=== PATIENT | male | born 1940 | race Caucasian/White ===

== ENCOUNTER → 2017-06-10 | Outpatient (CLI) | payer MEDICARE, BC ==
--- NOTE | ~2017-06-10 | PUL ---
PATIENT'S NAME: Rainer DUNLAP [facility] AGE: 76 Y [address] ROOM: [place] [address] LOCATION: [facility] ADMIT DATE: 06/10/2017 Pulmonary DISCHARGE DATE: FAMILY PHYSICIAN: David Arias MD ATTENDING PHYSICIAN: Bob Alonzo NAME OF PROCEDURE: Sleep Study PROCEDURE DATE: 06/10/17 TECH: Pietro Matias, COUNTY JUDGE TEST #: [facility] [place]# [id number] TECHNICAL PARAMETERS: The patient was studied using International 10/20 measuring system. While the patient was studied, there was continuous monitoring of EEG (8 leads), EOG (2 leads), EKG (3 leads), submental EMG (3 leads), tibial (4 leads), respiratory inductive plethysmography (RIP) for thoracic and abdominal effort, oral and nasal airflow with a thermocouple and pressure transducer, and oximetry. The tire and lube technician also performed visual and auditory observations noting things like body position, patient's status, breath sounds, artifact, snoring level and patient comments. Continuous sound was monitored using a 2-way speaker system and video monitoring was performed using an infrared camera. Review of the entire study was performed epoch by epoch utilizing a single epoch and multiple epoch capability sleep system. MEDICAL HISTORY: Patient is a 76-year-old man with daytime sleepiness and snoring. SLEEP STAGE SUMMARY: The patient was studied for 393 minutes of which he slept 330 minutes. He fell asleep in 11 minutes and slept for 84% of the night. Sleep architecture revealed a decline in slow wave and REM sleep. RESPIRATORY SUMMARY: Oxygen saturations ranged from 86-94%. There were 25 obstructive apneas and 23 hypopneas for an apnea/hypopnea index mildly elevated at 8.7 events per hour. The majority of the events occurred with the patient sleeping supine. EKG SUMMARY: No dysrhythmias were noted. Sinus bradycardia was noted. LIMB MOVEMENT SUMMARY: No clinically relevant periodic limb movements were noted. SUMMARY: Positional obstructive sleep apnea. PATIENT'S NAME: Rainer DUNLAP [facility] AGE: 76 Y [address] ROOM: [place] [address] LOCATION: [facility] ADMIT DATE: 06/10/2017 Pulmonary DISCHARGE DATE: FAMILY PHYSICIAN: David Arias MD ATTENDING PHYSICIAN: Bob Alonzo PLAN: The patient will receive results from the ordering provider. Suggest position training to help the patient avoid sleeping supine. MD HUNTER MARTINEZ/ /[id number] dtt: 06/23/17 1010 , David Robbins. dtd: 06/12/17 1011
== END | disposition disaster alternative care site (69) ==
LOC: GSLP 20:23
DX: G47.10 Hypersomnia, unspecified (principal); G47.33 Obstructive sleep apnea (adult) (pediatric)